=== PATIENT | female | born 1985 | race Caucasian/White ===

== ENCOUNTER → 2022-08-28 | Outpatient (CLI) | payer OTHER | LOC: M WUC 12:57 | PROVIDERS: ATTEND Nurse Practitioner Family | DX: M79.675 Pain in left toe(s) (principal); S92.512A Displaced fracture of proximal phalanx of left lesser toe(s), initial encounter for closed fracture; X58.XXXA Exposure to other specified factors, initial encounter; Y92.9 Unspecified place or not applicable; Y93.9 Activity, unspecified; Y99.9 Unspecified external cause status ==

== ENCOUNTER → 2023-06-20 | Outpatient (CLI) | payer OTHER | LOC: M PLALAB 11:08 | PROVIDERS: ATTEND Obstetrics & Gynecology | DX: E28.2 Polycystic ovarian syndrome (principal) ==

== ENCOUNTER → 2023-07-01 | Outpatient (CLI) | payer OTHER | LOC: M WHC 08:08 | PROVIDERS: ATTEND Obstetrics & Gynecology | DX: N83.202 Unspecified ovarian cyst, left side (principal) ==